=== PATIENT | male | born 1985 | race Caucasian/White ===

== ENCOUNTER 2024-03-05 18:23 | Emergency (ER) | payer BC, SELFPAY ==
[2024-03-05] VITALS (10 sets, daily range): BP systolic 94–120; BP diastolic 62–76; PULSE 54–64; RESP 16–18; TEMP 36.2; O2SAT 96–100; BMI 27.3
--- NOTE | 2024-03-05 18:47 | CT_ITS ---
Patient: KEATON COOPER Facility:?[facility] R[facility] Patient ID:?[id number] Site Patient ID:?[id number] Site :?[id number] Study:?CT-Abdomen/Pelvis W/O-03/05/2024 7:10:35 PM Ordering Physician:MARCEL Final Report: INDICATION: Abdomen pain, vomiting. History of hernia surgery. TECHNIQUE: CT of the abdomen and pelvis without IV contrast. Coronal and sagittal reconstructions. COMPARISON: None. FINDINGS: The unenhanced liver, gallbladder, spleen, pancreas, and adrenal glands are normal in appearance. No biliary dilation. No hydronephrosis or ureteral dilation. No obstructing urinary calculi identified. No bladder wall thickening. Nonenlarged prostate gland. No small bowel dilation. There is submucosal fat deposition in a few distal small bowel loops including the terminal ileum. This is nonspecific but can be seen in the setting of chronic inflammation. Mild to moderate amount of stool throughout the colon. Rectal wall thickening. Negative appendix. No intraperitoneal free air or fluid. No lymphadenopathy. Status post ventral hernia and bilateral inguinal hernia repairs. The lung bases are clear. Degenerative disc disease at L4-L5. IMPRESSION: 1. There is submucosal fat deposition in a few distal small bowel loops including the terminal ileum which can be seen in the setting of chronic inflammation. No evidence of bowel obstruction or active bowel inflammation within limitations of noncontrast exam. 2. Rectal wall thickening may be inflammatory, however correlation with colonoscopy is recommended. 3. No other acute findings in the abdomen or pelvis on this noncontrast exam. Please note that all CT scans at this facility use dose modulation, iterative reconstruction, and/or weight-based dosing when appropriate to reduce radiation dose to as low as reasonably achievable. Dictated by Felicia Hawkins MD @ 03/05/2024 7:47:09 PM Signed by:?Felicia Hawkins MD @03/05/2024 7:47:09 PM (Electronic Signature)
--- NOTE | 2024-03-05 18:49 | ED.GENADULT ---
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 He but 2:00 a.m. started feeling dizzy and upset in his stomach. He reports to that he was unable to take water for a couple of days, but did drink some coconut water today. He has had no recent fever, no chest pain, he has been vomiting pretty much steadily since he arrived in the ER. He describes some vague abdominal pain. He reports he has been healthy. He is not on any home medications. He denies trauma or injury. He has had no dysuria frequency hematuria diarrhea. Related Data Home Medications Medication Instructions Recorded Confirmed No Known Home Medications 03/05/24 03/05/24 Allergies Allergy/AdvReac Type Severity Reaction Status Date / Time No Known Drug Allergies Allergy Verified 03/05/24 18:38 Review of Systems Status of ROS: Reports: 6 or more systems reviewed and unremarkable except as noted in History and below PFSH PFS Social History Smoking Status: Never smoker Do you use any of these nicotine containing products: None Second hand tobacco smoke exposure: No How often do you have a drink containing alcohol: never AUDIT-C Alcohol total score: 0 Non-prescribed substance use: denies use Exam Narrative: Exam Narrative: Objective: Patient's vital signs are largely within normal limits, he does not have a temperature He is vomiting repetitively, he talks in a very breathy in quiet manner when he does speak. He denies any chest pain or breathing problem. He has not had any fever chills HEENT is unremarkable , although he is mildly pale Pulses regular Lungs are clear Abdomen is benign soft to palpation. The patient would not lie back so I examine him sitting up and could not feel any masses or peritonitis He denies symptoms Extremities are no edema neurologic nonfocal good peripheral perfusion noted, he is slightly pale his skin is cool. Const: Vital Signs, click to edit/add: Vital Signs - 24 hr 03/05/24 18:31 03/05/24 18:47 03/05/24 19:16 Temperature 97.1 F L Pulse Rate 54 L Pulse Rate [Pulse Oximeter] 64 Respiratory Rate 18 16 Blood Pressure 105/66 Blood Pressure [Le ft Upper Arm] 114/73 Pulse Oximetry 97 97 96 Oxygen Delivery Me thod Room Air Room Air 03/05/24 19:17 03/05/24 19:30 03/05/24 19:32 Temperature Pulse Rate 54 L 57 L 57 L Pulse Rate [Pulse Oximeter] Respiratory Rate Blood Pressure 94/62 Blood Pressure [Le ft Upper Arm] Pulse Oximetry 96 97 98 Oxygen Delivery Me thod 03/05/24 19:33 03/05/24 19:45 03/05/24 20:04 Temperature Pulse Rate 56 L 57 L 63 Pulse Rate [Pulse Oximeter] Respiratory Rate 18 Blood Pressure 120/76 Blood Pressure [Le ft Upper Arm] Pulse Oximetry 98 98 100 Oxygen Delivery Me thod Room Air 03/05/24 20:05 Temperature Pulse Rate 63 Pulse Rate [Pulse Oximeter] Respiratory Rate Blood Pressure Blood Pressure [Le ft Upper Arm] Pulse Oximetry 99 Oxygen Delivery Me thod Course Vital Signs Vital signs: Initial Vital Signs Temperature 97.1 F L 03/05/24 18:31 Temperature Source Temporal Artery Scan 03/05/24 18:31 Pulse Rate 64 03/05/24 18:31 Respiratory Rate 18 03/05/24 18:31 Blood Pressure 114/73 03/05/24 18:31 Blood Pressure Mean 86 03/05/24 18:31 Blood Pressure Position Sitting 03/05/24 18:31 Pulse Oximetry 97 03/05/24 18:31 Oxygen Delivery Method Room Air 03/05/24 18:31 Vital Signs Temperature 97.1 F L 03/05/24 18:31 Pulse Rate 64 03/05/24 18:31 Respiratory Rate 18 03/05/24 18:31 Blood Pressure 114/73 03/05/24 18:31 Pulse Oximetry 97 03/05/24 18:31 Oxygen Delivery Method Room Air 03/05/24 18:31 Temperature 97.1 F L 03/05/24 18:31 Pulse Rate 63 03/05/24 20:05 Respiratory Rate 18 03/05/24 20:04 Blood Pressure 120/76 03/05/24 20:04 Pulse Oximetry 99 03/05/24 20:05 Oxygen Delivery Method Room Air 03/05/24 20:04 Medications Administered Medications: Discontinued Medications Generic Name Dose Route Start Last Admin Trade Name Jennifer PRN Reason Stop Dose Admin Sodium Chloride 1,000 mls @ 6,000 mls/hr 03/05/24 19:00 03/05/24 19:50 0.9 % Sodium Chloride 1000 Ml IV 03/05/24 19:09 Infused .Q10M RAYMOND Infusion Sodium Chloride 1,000 mls @ 6,000 mls/hr 03/05/24 19:45 03/05/24 20:04 0.9 % Sodium Chloride 1000 Ml IV 03/05/24 19:54 Infused .Q10M RAYMOND Infusion Lorazepam 1 mg 03/05/24 18:47 03/05/24 18:56 Lorazepam 2 Mg/Ml Inj IVP 03/05/24 18:48 1 mg ONCE ONE Administration Ondansetron HCl 4 mg 03/05/24 18:47 03/05/24 18:55 Ondansetron 2 Mg/Ml Inj IVP 03/05/24 18:48 4 mg ONCE ONE Administration Medical Decision Making [facility] Narrative Medical decision making narrative: 38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 He certainly could just have [place] dehydration as well. Patient will get a L of fluid IV Ativan 1 mg and Zofran 4 mg IV. Will check electrolytes, liver function tests, urinalysis, urine drug screen. Disposition pending findings above. Probably give a 2 L of fluid as well. Would also completeness get a troponin and a EKG. Will put him on oximeter. Due to volume in the ER the patient was seen in the chahal bed. Addendum 7:22 p.m.: The patient has return of his collar he has good skin color he feels a lot better. He got a L of fluid Zofran Ativan. I think at this point will given a 2 L of fluid await his CT scan of his abdomen. And additional labs. If these are all reassuring I think he can be discharged to home with adequate fluid, stay out of the heat for the next couple of days and light activity. Follow up with regular doctor in the next 3-4 days. The patient's EKG by my read shows sinus bradycardia normal EKG otherwise in rate of 58 beats per minute. Addendum 7:51 p.m. the patient's EKG by my read shows sinus bradycardia with no ST T wave changes. His troponin is 0. His electrolytes and labs look reassuring, his glucose is elevated 137 which is likely stress related from dehydration and exertion. Would recommend he have this tested again fasting. His CT of the abdomen without contrast showed few submucosal fat deposition is a within the terminal ileum and small-bowel loops of could be chronic inflammation, some rectal wall thickening may be inflammatory as well. No other acute findings. They do recommend colonoscopy to recheck this. The patient feels markedly better after IV fluid 0 who get a 2 L. I would rather follow up with his primary care doctor I think we can allow to go home today. Recommend light activity for the next couple of days and then recheck with regular doctor, consider colonoscopy in follow-up Lab Data Labs: Lab Results 03/05/24 03/05/24 Range/Units 18:50 19:55 WBC 11.13 H (4.50-11.00) K/uL RBC 5.28 (4.30-5.90) m/uL Hgb 13.7 (13.5-17.5) gm/dL Hct 42.2 (37.0-53.0) % MCV 80 (80-100) fL MCH 26 (26-34) pg MCHC 33 (32-36) gm/dL RDW Coeff of Manish 12.5 (11.5-15.5) % Plt Count 366 (140-440) K/uL Neut % (Auto) 59.1 (42.0-72.0) % Lymph % (Auto) 29.8 (20-44) % [place] % (Auto) 9.1 (0.0-11.0) % Eos % (Auto) 1.5 (0.0-7.0) % Baso % (Auto) 0.3 (0.0-3.0) % Neut # (Auto) 6.60 (1.7-7.0) K/uL Lymph # (Auto) 3.30 H (0.90-2.90) K/uL [place] # (Auto) 1.00 H (0.00-0.90) K/UL Eos # (Auto) 0.20 (0.00-0.50) K/uL Baso # (Auto) 0.00 (0.00-0.30) K/uL Abs Immat Gran (auto) 0.00 (0.00-0.30) K/uL Imm/Tot Granulo (auto) 0.2 % Sodium 141 (135-149) mmol/L Potassium 3.6 (3.6-5.1) mmol/L Chloride 106 (96-114) mmol/L Carbon Dioxide 27 (20-32) mmol/L Anion Gap 8 (7-15) mEq/L BUN 24 (5-24) mg/dL Creatinine 0.9 (0.5-1.5) mg/dL Estimated Creat Clear 112.65 Estimated GFR 111 ml/min Glucose 137 H (60-115) mg/dL Calcium 8.9 (8.4-10.6) mg/dL Total Bilirubin 0.4 (0.1-1.5) mg/dL Direct Bilirubin 0.0 (0.0-0.5) mg/dL AST 32 (12-35) U/L ALT 25 (4-50) U/L Alkaline Phosphatase 80 (40-150) U/L C-Reactive Protein < 0.5 L (0.5-1.0) mg/dL Total Protein 7.5 (6.0-8.3) g/dL Albumin 4.7 (3.3-5.0) g/dL Amylase 72 (18-89) U/L Urine Color Taylor A (Yellow) Urine Appearance Clear (Clear) Urine pH 5.5 (5.0-8.5) Ur Specific [place] >= 1.030 (1.000-1.030) Urine Protein Negative (Negative) Urine Glucose (UA) Negative (Negative) Urine Ketones Negative (Negative) Urine Blood Negative (Negative) Urine Nitrite Negative (Negative) Urine Bilirubin Negative (Negative) Urine Urobilinogen 0.2 (0.2-1.0) Ur Leukocyte Esterase Negative (Negative) Urine RBC 0-2 (0-2) Urine WBC 0-2 (0-5) Ur Squamous Epith Cells None (None-Few) Urine Bacteria None (None) Urine Opiates Screen Negative (Negative) Ur Oxycodone Screen Negative (Negative) Urine Methadone Screen Negative (Negative) Ur Barbiturates Screen Negative (Negative) U Tricyclic Antidepress Negative (Negative) Ur Phencyclidine Scrn Negative (Negative) Ur Amphetamines Screen Negative (Negative) U Methamphetamines Scrn Negative (Negative) U Benzodiazepines Scrn Negative (Negative) Urine Cocaine Screen Negative (Negative) U Marijuana (THC) Screen Negative (Negative) Ur Drug Screen Comment See Note POC Troponin I 0.00 L (0.01-0.04) ng/ml Discharge Plan Discharge Clinical Impression: Vomiting, Dehydration Patient Disposition: Home w/ Parent or Adult Condition: Improved Additional Instructions: Light activity for the next couple of days, adequate fluid intake including up to 6 full glasses of water a day, avoid the heat for the next couple of days, recheck with her regular doctor in the next 3-4 days. Return to ED sooner problems concerns worsening. Radiologist recommends colonoscopy foot to follow-up some inflammatory changes noted on year small bowel and rectal area. This is possibly benign and may be related to dehydration or simply a normal variant, but I would recommend talk about this with your doctor consider colonoscopy. Activity Level: Light activity Discharge Diet: Regular Prescriptions: No Action No Known Home Medications Follow Up/Referrals: Jose G Cantu MD [Primary Care Provider] - Stand Alone Forms: [employer] Info Instructions
[2024-03-05] MEDS: ONDANSETRON 2 MG/ML inj 4 MG IVP (18:55)
[2024-03-05] MEDS: 0.9 % SODIUM CHLORIDE 1000 ml 1,000 ML 6000 ML IV ×2 (18:56→19:50)
[2024-03-05] MEDS: LORazepam 2 MG/ML inj 1 MG IVP (18:56)
[2024-03-05 19:00] LABS: Basophils Percent Auto 0.3 % (0.0-3.0); Eosinophils Percent Auto 1.5 % (0.0-7.0); Hematocrit 42.2 % (37.0-53.0); Hemoglobin* 13.7 gm/dL (13.5-17.5); Immature Granulocytes Pct Auto 0.2 %; Lymphocytes Percent Auto 29.8 % (20-44); Mean Corpuscular HGB Conc 33 gm/dL (32-36); Mean Corpuscular Hemoglobin 26 pg (26-34); Mean Corpuscular Volume 80 fL (80-100); Monocytes Percent Auto 9.1 % (0.0-11.0); Neutrophils Percent Auto 59.1 % (42.0-72.0); Platelet Count* 366 K/uL (140-440); RDW Coefficient of Variation % 12.5 % (11.5-15.5); Red Blood Count 5.28 m/uL (4.30-5.90); White Blood Count* 11.13 K/uL (4.50-11.00)
[2024-03-05 19:02] LABS: Slide Review Reflex No
--- OUTSIDE RECORDS SUMMARY | 2024-03-05 19:02 | XMS_ITS | Referral Summary ---
Author Name Unknown Organization [place] Address [address] [place] [address] Care Team Providers Care Consignee Name Role Phone Jose G Cantu MD Primary Care Provider [phone] Steffen Bo MD Unavailable Allergies No known active allergies Medications No known medications Social History Tobacco Use Types Packs/Day Years Used Date Smoking Tobacco: Former Cigarettes Q uit: 10/20/2022 Tobacco Cessation:Counseling Given: Yes Alcohol Use Standard Drinks/Week Comments Yes 0 (1 standard drink = 0.6 oz pur e alcohol) 0-1 per week Adolescent Education Answer Date Record ed Getting School Help Needed Not on file 07/17 Sex and Gender Information Value Date Recorded Sex Assigned at Not on file Gender Identity Not on file Sexual Orientation Not on file Last Filed Vital Signs Vital Sign Reading Time Taken Comments Blood Pressure 100/60 07/10/2023 11:27 AM CDT Pulse 57 07/10/2023 11:27 AM CDT Temperature 36.7 ??C (98.1 ??F) 10/06/2011 12:[address] Respiratory Rate 16 10/06/2011 12:46 PM LEAD QA ANALYST Oxygen Saturation 98% 10/06/2011 12:46 PM LEAD QA ANALYST Inhaled Oxygen Concentration - - Weight 83.9 kg (185 lb) 07/10/2023 11:27 AM CDT Pt reported Height 177.8 cm (5' 10) 07/10/2023 11:27 AM CDT Pt reported Body Mass Index 26.54 07/10/2023 11:27 AM CDT Plan of Treatment Not on file Care Teams Consignee Relationship Specialty Start Date End Date Jose G Cantu MD [address] [place] [address] PCP - General 06/16/23 Steffen Bo MD [id number] [place] [id number] Assigned Surgical Provider 07/26/23
--- OUTSIDE RECORDS SUMMARY | 2024-03-05 19:02 | XMS_ITS | Clinical Summary ---
Author Name Unknown Organization [place] Address [address] [facility] [place] [address] Care Team Providers Care Utilization Supervisor Name Role Phone Jose G Cantu MD Primary Care Provider [phone] Steffen Bo MD Unavailable [phone] Allergies No known active allergies Medications No [...] ST Respiratory Rate 16 10/06/2011 12:46 PM SUBSTATION DESIGNER Oxygen Saturation 98% 10/06/2011 12:46 PM SUBSTATION DESIGNER Inhaled Oxygen Concentration - - Weight 83.9 kg (185 lb) 07/10/2023 11:27 AM CDT Pt reported Height 177.8 cm (5' 10) 07/10/2023 11:27 AM CDT Pt reported Body Mass Index 26.54 07/10/2023 11:27 AM CDT Plan of Treatment Health Maintenance Due Date Last Done Comments ADVANCE CARE PLANNING 1983 ANNUAL REVIEW OF HM ORDERS 1983 GLUCOSE 1983 HIV SCREENING 1998 HEPATITIS C SCREENING 2001 IPV IMMUNIZATION (3 of 3 - 4-dose series) 08/08/2010 02/06/2010, 06/30/1985 COVID-19 Vaccine ( season) 2023 08/01/2022, 10/04/2021, 02/01/2021, Additional history exists PHQ-2 (once per calendar year) 2023 LIPID 2023 YEARLY PREVENTIVE VISIT 06/16/2024 06/16/20 23, 04/30/2022, 11/21/2020 INFLUENZA VACCINE (Season Ended) 2024 08/01/2022, 07/31/2020, 12/08/2019, Additional history exists DTAP/TDAP/TD IMMUNIZATION (4 - Td or Tdap) 01/05/2030 01/06/2020, 02/06/2010, 06/30/1985 MENINGITIS IMMUNIZATION Aged Out 02/06/2010 No l onger eligible based on patient's age to complete this topic Pneumococcal Vaccine: Pediatrics (0 to 5 Years) and At-Risk Patients (6 to 64 Years) Aged Out 02/14/2011 No longer eligible based on patient's age to complete this topic HEPATITIS B IMMUNIZATION Completed 011, 04/12/2010, 02/08/2010 HPV IMMUNIZATION Aged Out No longer e ligible based on patient's age to complete this topic RSV MONOCLONAL ANTIBODY Aged Out No l onger eligible based on patient's age to complete this topic Care Teams Utilization Supervisor Relationship Specialty Start Date End Date Jose G Cantu MD [address] [place] [address] PCP - General 06/16/23 Steffen Bo MD [id number] [place] [id number] Assigned Surgical Provider 07/26/23
--- OUTSIDE RECORDS SUMMARY | 2024-03-05 19:03 | XMS_ITS | Continuity of Care Document ---
Author Name [facility] Organization [facility] Care Team Providers Care Scrape Gatherer Name Role Phone [facility] Unavailable Unavailable Problems Combined list of problems from Department of Defense and Veterans Affairs facilities. It does not include entries that were removed or entered in error. 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 medical exam periodic health assessment Active Condition DoD joint pain in the right hip Active Condition DoD lower back pain Active Condition DoD chronic pain Active Condition DoD conjunctivitis acute Inactive Condition DoD back strain lumbar Inactive Condition Do D midback pain Active Condition DoD visit for: screening exam viral disease Inactive Condition DoD [employer] medical exam Active Condition [facility] visit for: screening exam infectious diseases viral Inactive Condition DoD visit for: ears / hearing exam Active Condition DoD visit for: screening exam hematological disorders Inactive Condition DoD visit for: screening mental / developmental disorders Inactive Condition DoD Need For Vaccination MMR Inactive Condition DoD Need For Vaccination Hepatitis B Inactive Condition DoD foot pain (soft tissue) Active Condition DoD upper respiratory infection acute Inactive Condition DoD headache Inactive Condition DoD coughing up sputum reddish brown Active Condition DoD otitis media Active Condition DoD rhinitis Active Condition DoD [employer] Fitting Monofocal Except For Aphakia Active Condition DoD visit for: screening exam Inactive Condition DoD visit for: occupational health / fitness exam Active Condition DoD Need For Vaccination Against Influenza Inactive Condition DoD cellulitis Inactive Condition DoD visit for: administrative purpose Inactive Condition DoD Need For Vaccination Hepatitis A Inactive Condition DoD refractive error - myopia Active Condition DoD visit for: services physical Inactive Condition DoD visit for: screening exam pulmonary tuberculosis Inactive Condition DoD visit for: services physical accession Active Condition DoD visit: ears/hearing exam for hearing conservation, treatment Active Condition DoD Allergies, Adverse Reactions, Alerts Combined list of allergies from Department of Defense and Veterans Affairs facilities. It does not include entries that were removed or entered in error. Substance Category Reaction Severity Reaction type Status Date Reported Comments Source No Known Allergies Drug allergy (disorder) active 04/12/2010 Tj Bashir [place] Immunizations Combined list of available immunizations from the Department of Defense and Veterans Affairs facilities. Immunization Series Date Given Administered By Site Reaction Lot Number CVX Code Drug Clerical Stock Inspector Status Comments Source COVID-19 (PFIZER), MRNA, LNP-S, PF, 30 MCG/0.3 ML DOSE 2 2020 208 complet ed PFR; [id number]; 1 [facility] COVID-19 (PFIZER), MRNA, LNP-S, PF, 30 MCG/0.3 ML DOSE 1 2020 208 complet ed PFR; [id number]; 1 [facility] influenza, seasonal, injectable-pf 2014 [id number] CSL Behring complet ed influenza , seasonal, injectabl e-pf 08/17/15 Given Ambulat ory Pharmac y influenza, seasonal, injectable-pf 2014 [id number] 140 CSL Behring complet ed influenza , seasonal, injectabl e-pf 08/17/15 Given Ambulat ory Pharmac y Influenza, seasonal, injectable, preservative free 1 2014 [id number] 140 CSL [employer]eda [employer] (CS) complet ed Influenza , seasonal, injectabl e, preservat avtar free DoD influenza, seasonal, injectable-pf 2013 [id number] 140 Novartis Pharmaceutica ls complet ed influenza , seasonal, injectabl e-pf 07/28/14 Given Ambulat ory Pharmac y influenza, seasonal, injectable-pf 2013 [id number] 140 Novartis Pharmaceutica ls complet ed influenza , seasonal, injectabl e-pf 07/28/14 Given Ambulat ory Pharmac y Influenza, seasonal, injectable, preservative free 1 2013 [id number] 140 Novartis Pharmaceutica l Chary. (NOV) complet ed Influenza , seasonal, injectabl e, preservat avtar free [facility] influenza, live, intranasal,qu adrivalent 2012 [id number] 149 [employer] comple t ed influenza , live, intranasa l,quadriv alent 07/26/13 Given Ambulat ory Pharmac y tuberculin purified protein derivative 2012 [id number] 96 sanofi pasteur complet ed tuberculi n purified protein derivativ e 07/26/13 Given Ambulat ory Pharmac y influenza, live, intranasal,qu adrivalent 2012 [id number] 149 [employer] comple t ed influenza , live, intranasa l,quadriv alent 07/26/13 Given Ambulat ory Pharmac y influenza, live, intranasal, quadrivalent 1 2012 [id number] 149 [employer]. (MED) complet ed influenza , live, intranasa l, quadrival ent DoD anthrax vaccine 2012 [id number] Emergent [employer] complet ed anthrax vaccine 04/01/13 Given Ambulat ory Pharmac y anthrax vaccine 2012 [id number] 24 [employer] complet ed anthrax vaccine 04/01/13 Given Ambulat ory Pharmac y anthrax vaccine 3 2012 [id number] 24 Emergent [employer] Weems (MIP) complet ed anthrax vaccine DoD typhoid Vi capsular polysaccharid e vac 2012 [id number] 101 sanofi pasteur complet ed typhoid Vi capsular polysacch aride vac 11/01/12 Given Ambulat ory Pharmac y anthrax vaccine 2012 [id number] 24 [employer] complet ed anthrax vaccine 11/01/12 Given Ambulat ory Pharmac y typhoid Vi capsular polysaccharid e vac 2012 [id number] 101 sanofi pasteur complet ed typhoid Vi capsular polysacch aride vac 11/01/12 Given Ambulat ory Pharmac y anthrax vaccine 2012 [id number] 24 [employer] complet ed anthrax vaccine 11/01/12 Given Ambulat ory Pharmac y anthrax vaccine 2 2012 [id number] [employer] (MIP) complet ed anthrax vaccine DoD typhoid Vi capsular polysaccharid e vaccine 1 2012 [id number] 101 Sanofi Pasteur (PMC) complet ed typhoid Vi capsular polysacch aride vaccine DoD anthrax vaccine 2011 [id number] [employer] complet ed anthrax vaccine 09/14/12 Given Ambulat ory Pharmac y tuberculin purified protein derivative 2011 [id number] 96 sanofi pasteur complet ed tuberculi n purified protein derivativ e 09/14/12 Given Ambulat ory Pharmac y anthrax vaccine 1 2011 [id number] 24 [employer] (MIP) complet ed anthrax vaccine DoD vaccinia (smallpox) vaccine 1 2011 UNK 75 Unknown (UNK) Not Given vaccinia (smallpox ) vaccine DoD influenza virus vaccine, whole virus 2011 Left Arm [id number] [id number] 16 CSL Behring complet ed influenza virus vaccine, whole virus 08/13/12 Given Ambulat ory Pharmac y influenza, seasonal, injectable 2011 [id number] 1A 141 CSL Behring complet ed influenza , seasonal, injectabl e 08/13/12 Given Ambulat ory Pharmac y influenza, seasonal, injectable 2011 [id number] 1A 141 CSL Behring complet ed influenza , seasonal, injectabl e 08/13/12 Given Ambulat ory Pharmac y influenza virus vaccine, whole virus 1 2011 TRISH GUERRERO [id number] 1A 16 CS [employer]otherap[employer] Inc. ([facility]) complet ed influenza virus vaccine, whole virus DoD Influenza, seasonal, injectable 1 2011 [id number] 1A 141 CS [employer]eda [employer] Inc. ([facility]) complet ed Influenza , seasonal, injectabl e DoD influenza, seasonal, injectable 2010 [id number] 1A 141 Unknown complet ed influenza , seasonal, injectabl e 07/10/11 Given Ambulat ory Pharmac y influenza, seasonal, injectable 2010 [id number] 1A 141 Unknown complet ed influenza , seasonal, injectabl e 07/10/11 Given Ambulat ory Pharmac y Influenza, seasonal, injectable 1 2010 [id number] 1A 141 Unknown (UNK) complet ed Influenza , seasonal, injectabl e DoD measles/mumps /rubella virus vaccine 2010 [id number] Merck & Company Inc complet ed measles/m umps/rube lla virus vaccine 05/17/11 Given Ambulat ory Pharmac y hepatitis A-hepatitis B vaccine 2010 [id number] 1BA 104 GlaxoSmithKli ne complet ed hepatitis A-hepatit is B vaccine 05/17/11 Given Ambulat ory Pharmac y hepatitis A-hepatitis B vaccine 2010 [id number] 1BA 104 GlaxoSmithKli ne complet ed hepatitis A-hepatit is B vaccine 05/17/11 Given Ambulat ory Pharmac y hepatitis A-hepatitis B vaccine 2010 [id number] 1BA 104 GlaxoSmithKli ne complet ed hepatitis A-hepatit is B vaccine 05/17/11 Given Ambulat ory Pharmac y measles/mumps /rubella virus vaccine 2010 [id number] 03 Merck & Company Inc complet ed measles/m umps/rube lla virus vaccine 05/17/11 Given Ambulat ory Pharmac y measles, mumps and rubella virus vaccine 1 2010 [id number] 03 Merck (MSD) complet ed measles, mumps and rubella virus vaccine DoD hepatitis A and hepatitis B vaccine 3 2010 [id number] 1BA 104 [place] (SKB) complet ed hepatitis A and hepatitis B vaccine DoD pneumococcal polysaccharid e, 23 valent 2010 [id number] 33 [employer] complet ed pneumococ david polysacch aride, 23 valent 02/14/11 Given Ambulat ory Pharmac y pneumococcal polysaccharid e, 23 valent 2010 [id number] 33 [employer] complet ed pneumococ david polysacch aride, 23 valent 02/14/11 Given Ambulat ory Pharmac y pneumococcal polysaccharid e vaccine, 23 valent 1 2010 [id number] 33 [facility] complet ed pneumococ david polysacch aride vaccine, 23 valent DoD influenza virus vaccine,split 2009 [id number] 15 Unknown complet ed influenza virus vaccine,s plit 09/07/10 Given Ambulat ory Pharmac y influenza virus vaccine,split 2009 [id number] 15 Unknown complet ed influenza virus vaccine,s plit 09/07/10 Given Ambulat ory Pharmac y influenza virus vaccine, split virus (incl. purified surface antigen)-reti red CODE 1 2009 [id number] 15 Unknown (UNK) comple t ed influenza virus vaccine, split virus (incl. purified surface antigen)- retired CODE DoD hepatitis A-hepatitis B vaccine 2009 [id number] 4BA 104 GlaxoSmithKli ne complet ed hepatitis A-hepatit is B vaccine 04/12/10 Given Ambulat ory Pharmac y hepatitis A-hepatitis B vaccine 2009 [id number] 4BA 104 GlaxoSmithKli ne complet ed hepatitis A-hepatit is B vaccine 04/12/10 Given Ambulat ory Pharmac y hepatitis A-hepatitis B vaccine 2009 [id number] 4BA 104 GlaxoSmithKli ne complet ed hepatitis A-hepatit is B vaccine 04/12/10 Given Ambulat ory Pharmac y hepatitis A and hepatitis B vaccine 2 2009 [id number] 4BA 104 Smithine (SKB) complet ed hepatitis A and hepatitis B vaccine DoD varicella virus vaccine 1 2009 UNK 21 Unknown (UNK) Not Given varicella virus vaccine DoD Novel influenza-H1N 1-09, injectable 2009 [id number] 1 127 Novartis Pharmaceutica ls complet ed Novel influenza -[id number], injectabl e 02/08/10 Given Ambulat ory Pharmac y measles/mumps /rubella virus vaccine 2009 [id number] 03 Merck & Company Inc complet ed measles/m umps/rube lla virus vaccine 02/08/10 Given Ambulat ory Pharmac y hepatitis A-hepatitis B vaccine 2009 [id number] 7BA 104 GlaxoSmithKli ne complet ed hepatitis A-hepatit is B vaccine 02/08/10 Given Ambulat ory Pharmac y hepatitis A-hepatitis B vaccine 2009 [id number] 7BA 104 GlaxoSmithKli ne complet ed hepatitis A-hepatit is B vaccine 02/08/10 Given Ambulat ory Pharmac y hepatitis A-hepatitis B vaccine 2009 AHABB16 7BA 104 GlaxoSmithKli ne complet ed hepatitis A-hepatit is B vaccine 02/08/10 Given Ambulat ory Pharmac y Novel influenza-H1N 1-09, injectable 2009 [id number] 1 127 Novartis Pharmaceutica ls complet ed Novel influenza -[id number], injectabl e 02/08/10 Given Ambulat ory Pharmac y measles/mumps /rubella virus vaccine 2009 [id number] 03 Merck & Company Inc complet ed measles/m umps/rube lla virus vaccine 02/08/10 Given Ambulat ory Pharmac y measles, mumps and rubella virus vaccine 1 2009 [id number] 03 Merck (MSD) complet ed measles, mumps and rubella virus vaccine DoD hepatitis A and hepatitis B vaccine 1 2009 AHABB16 7BA 104 SmithKline (SKB) complet ed hepatitis A and hepatitis B vaccine DoD Novel influenza-H1N 1-09, injectable 1 2009 [id number] 1 127 Novartis Easy Solutions. (NOV) complet ed Novel influenza -M2I3-58, injectabl e DoD tetanus, diphtheria, acellular pertu is 2009 [id number] 115 sanofi pasteur complet ed tetanus, diphtheri a, acellular pertussis 02/06/10 Given Ambulat ory Pharmac y meningococcal A,C,Y,W-135 (MCV4P) 2009 [id number] 114 GlaxoSmithKli ne complet ed meningoco ccal A,C,Y,W-1 35 (MCV4P) 02/06/10 Given Ambulat ory Pharmac y tetanus, diphtheria, acellular pertu is 2009 [id number] 115 sanofi pasteur complet ed tetanus, diphtheri a, acellular pertussis 02/06/10 Given Ambulat ory Pharmac y meningococcal A,C,Y,W-135 (MCV4P) 2009 [id number] 114 GlaxoSmithKli ne complet ed meningoco ccal A,C,Y,W-1 35 (MCV4P) 02/06/10 Given Ambulat ory Pharmac y poliovirus vaccine, inactivated 2009 [id number] 10 sanofi pasteur complet ed polioviru s vaccine, inactivat ed 02/06/10 Given Ambulat ory Pharmac y poliovirus vaccine, inactivated 2009 [id number] 10 sanofi pasteur complet ed polioviru s vaccine, inactivat ed 02/06/10 Given Ambulat ory Pharmac y tuberculin purified protein derivative 2009 [id number] 96 GlaxoSmithKli ne complet ed tuberculi n purified protein derivativ e 02/06/10 Given Ambulat ory Pharmac y poliovirus vaccine, inactivated 1 2009 [id number] 10 Sanofi Pasteur (PMC) complet ed polioviru s vaccine, inactivat ed DoD meningococcal polysaccharid e (groups A, C, Y and W-135) diphtheria toxoid conjugate vaccine (MCV4P) 1 2009 [id number] 114 [facility] (SKB) complet ed meningoco ccal polysacch aride (groups A, C, Y and W-135) diphtheri a toxoid conjugate vaccine (MCV4P) DoD tetanus toxoid, reduced diphtheria toxoid, and acellular pertu is vaccine, adsorbed 1 2009 [id number] 115 Sanofi Pasteur (PMC) complet ed tetanus toxoid, reduced diphtheri a toxoid, and acellular pertussis vaccine, adsorbed DoD influenza virus vaccine, live 2009 [id number] 111 sanofi pasteur complet ed influenza virus vaccine, live 02/05/10 Given Ambulat ory Pharmac y influenza virus vaccine, live 2009 [id number] 111 sanofi pasteur complet ed influenza virus vaccine, live 02/05/10 Given Ambulat ory Pharmac y influenza virus vaccine, live, attenuated, for intranasal use 1 2009 [id number] 111 Sanofi Pasteur ([facility]) complet ed influenza virus vaccine, live, attenuate d, for intranasa l use DoD Encounters Combined list of: 1) Encounters from Department of Veterans Affairs facilities going back up to thelast 18 months. 2) Encounters from the Department of Defense facilities going back up to 280 months. Location Location Details Encounter Type Encounter Number Reason For Visit Attending Provider ADM Date DC Date Status Disposition Source [place] [place] [facility] [place] OUTPATIENT [id number] LUCIA RASHEED 02/07 Released [place] Lim[place] [id number] hearing test THANH LEBLANC. 02/07 [place] [place] [id number] IMM KEATON ALCALA 02/08 [place] OUTPATIENT [id number] TWIN KELBY CHILDERS L. 04/12 Released w/o Limitations Leandro ACHTj Virgie , [place]([facility]) Leandro A[facility]Tj, [place]([facility]) OUTPATIENT [id number] O[facility] RECORD SCREENI JACKSON BRUCE 05/04 Released w/o Limitations Leandro ACHTj , [place]([facility] Leandro [facility]Tj, [place]([facility]) OUTPATIENT [id number] inflama tion of LUIS F Valdez 06/14 Released w/o Limitations Leandro ACHTj , [place]([facility]) Leandro [facility]Tj, [place]([facility]) OUTPATIENT [id number] [facility] BETHANY CAMPOS 08/22 Released w/o Limitations Leandro ACHTj , [place]([facility]) Leandro ACHTj, [place]([facility]) OUTPATIENT [id number] flu shot MOUNIKA BREAUX. 09/12 Released w/o Limitations Leandro ACHTj , [place]([facility]) Leandro ACHTj, [place]([facility]) OUTPATIENT [id number] [facility] MOUNIKA BREAUX. 09/18 Released w/o Limitations Leandro ACHTj , [place]([facility]) Leandro ACHTj, [place]([facility]) OUTPATIENT [id number] [facility] part II KELBY ALLEN P 09/20 Released w/o Limitations Leandro ACHTj , [place]([facility]) Tj Bashir, [place]([facility]) OUTPATIENT [id number] records review BLAKE CORMIER 09/25 Released w/o Limitations Leandro ACHTj , [place]([facility]) Tj Bashir, [place](Optome try) OUTPATIENT [id number] DARNELL Holder 01/16 [place]) OUTPATIENT [id number] cold symptom s LUIS F MEDRANO Leslie 02/07 Released with Work/Duty Limitations [place] [place] ) OUTPATIENT [id number] foot pain MATTHEWJAIMEMarco A Ryder 03/16 Released w/o Limitations [facility] [place] [place]) OUTPATIENT [id number] [facility] DEJA CHRISTIANO O 05/20 Released w/o Limitations [place] [place]j [place] Medical Inprocess ing) OUTPATIENT [id number] DENG Velez 05/31 [facility]ased w/o Limitations [facility] [place] Medical Inproce ssing) [facility] [place] OUTPATIENT [id number] HAKEEM Garcia 10/30 Released w/o Limitations [facility] [place] [facility] [place]Optome try [facility] OUTPATIENT [id number] [employer] 20/20 w/o rx CARLOS MURPHY 11/21 Released w/o Limitations [facility] [place]Opto metry [facility]) [facility] [place] Primary Care) OUTPATIENT [id number] Notes Entered by: EMEKA CONCEPCION 13 Aug 2012 0756 ------- ------- ------- ------- -- walk in [facility] TRISH GUERRERO 08/13 Released w/o Limitations [facility] DEANDRE [place]([facility] Primary Care) [facility] DE[facility]RE Paula([facility] Primary Care) OUTPATIENT [id number] Notes Entered by: RODRIGO DOBSON 24 Aug 2013 0953 ------- ------- ------- ------- -- [facility] JENSEN BLACKBURN 08/24 Released w/o Limitations [facility] [place] Primary Care) [facility] [place] Dr) OUTPATIENT [id number] x-ray JENSEN MALDONADO 09/07 Released w/o Limitations [facility] [place] Dr) [facility] [place] [id number] Notes Entered by: VIK ACOSTA 08 Oct 2013 1003 ------- ------- ------- ------- -- [facility] VIK ACOSTA 10/08 Released w/o Limitations [facility] [place]ion) [facility] [place]) OUTPATIENT [id number] midback pain BETSY GAY W 11/09 Released w/o Limitations [facility] DEANDRE [place](Chir opracti c Clinic) [facility] [place]) OUTPATIENT [id number] BETSY GAY 11/15 Released w/o Limitations [facility] [place]Ch[place] opract[place] Clinic) [facility] [place] OUTPATIENT [id number] BETSY GAY W 11/17 Released w/o Limitations [facility] DEANDRE Paula(Chir opracti c Clinic) [facility] DEANDRE Paula(Chirop ractic Clinic) OUTPATIENT [id number] BETSY GAY W 11/22 Released w/o Limitations [facility] [place]ract[place] Clinic) [facility] [place] Primary Care) OUTPATIENT [id number] Notes Entered by: DAVID BETANCUR 24 Nov 2013 0840 ------- ------- ------- ------- -- JEFFERSON GARCIA JACKSON CHERY 11/24 Released w/o Limitations [facility] DEANDRE Judd([facility] Primary Care) [facility] MEDDEANDRE Guido(Chirop ractic Clinic) OUTPATIENT [id number] BETSY GAY Jennifer 11/24 Released w/o Limitations [facility] DEANDRE Judd([facility] opracti c Clinic) [facility] DEANDRE Judd(Chirop ractic Clinic) OUTPATIENT [id number] BETSY GAY Jennifer 11/29 Released w/o Limitations [facility] MEDDEANDRE Guido([facility] opracti c Clinic) [facility] DEANDRE Judd(Chirop ractic Clinic) OUTPATIENT [id number] BETSY GAY Jennifer 12/02 Released w/o Limitations [facility] DEANDRE Judd([facility] opracti c Clinic) [facility] DEANDRE Judd([facility] Dr) TELE CONSULT [id number] Notes Entered by: YARELIS ROLLE 02 Dec 2013 1139 ------- ------- ------- ------- -- Needs [facility] YARELIS ROLLE 12/02 [facility] DEANDRE Judd([facility] Dr) [facility] DEANDRE Judd([facility] Physical Therapy Clinic) OUTPATIENT [id number] BACK STRAIN LUMBAR RILEY ESCOBAR P 12/15 Released w/o Limitations [facility] DEANDRE Judd([facility] Physica l Therapy Clinic) [facility] [id number] BETSY GAY Jennifer 12/15 Released w/o Limitations [facility] MEDDEANDRE Guido([facility] opracti c Clinic) [facility] DEANDRE Judd([facility] Physical Therapy Clinic) OUTPATIENT [id number] RILEY ESCOBAR 12/17 Released w/o Limitations [facility] DEANDRE Judd([facility] Physica l Therapy Clinic) [facility] DEANDRE Judd([facility] Physical Therapy Clinic) OUTPATIENT [id number] RILEY ESCOBAR P 12/22 Released w/o Limitations [facility] [place]j [place] Physica l Therapy Clinic) [facility] [facility] DEANDRE Paula(Chirop ractic Clinic) OUTPATIENT [id number] BETSY GAY 12/23 Released w/o Limitations [facility] [place] opracti c Clinic) [facility] [place] Physical Therapy Clinic) OUTPATIENT [id number] RILEY ESCOBAR 12/28 Released w/o Limitations [facility] [place] Physica l Therapy Clinic) [facility] [place]) OUTPATIENT [id number] BETSY GAY 12/28 Released w/o Limitations [facility] [place] op[place] Clinic) [facility] [place] OUTPATIENT [id number] REKHA Fabian 12/30 Released w/o Limitations [facility] DEANDRE Paula([facility] met[facility]) [facility] [place] Physical Therapy Clinic) OUTPATIENT [id number] RILEY ESCOBAR 12/30 Released w/o Limitations [facility] [place] Physica l Therapy Clinic) [facility] [place] OUTPATIENT [id number] Notes Entered by: GILBERT PEDERSEN 11 Jan 2014 0704 ------- ------- ------- ------- -- Rx check REKHA POST 01/11 Released w/o Limitations [facility] [place]) [facility] DEANDRE Paula(Chirop ractic Clinic) OUTPATIENT [id number] BETSY GAY 01/11 Released w/o Limitations [facility] [place] opracti c Clinic) [facility] [place] Physical Therapy Clinic) OUTPATIENT [id number] RILEY ESCOBAR 01/13 Released w/o Limitations [facility] [place] Physica l Therapy Clinic) [facility] [place]) OUTPATIENT [id number] BETSY GAY Jennifer 01/13 Released w/o Limitations [facility] [place] [facility] [place]) OUTPATIENT [id number] BETSY GAY W 01/17 Released w/o Limitations [facility] [place] [facility] [place] OUTPATIENT [id number] Notes Entered by: TIMMY MURPHY 20 Jan 2014704 ------- ------- ------- ------- -- F/u conj. giant papilla ry last seen Dec 31 REKHA POST 01/20 Released w/o Limitations [facility] [place] [facility] [place]) OUTPATIENT [id number] BETSY GAY Jennifer 01/20 Released w/o Limitations [facility] [place] [place] Clinic[place] [facility] [place] Physical Therapy Clinic) OUTPATIENT [id number] RILEY ESCOBAR 01/20 Released w/o Limitations [facility] [place] Physica l Therapy Clinic) [facility] [place]) OUTPAT[place] [id number] GAY BETSY Jennifer 01/27 Released w/o Limitations [facility] [place] [place] Clinic) [facility] [place] Physical Therapy Clinic) OUTPATIENT [id number] RILEY ESCOBAR P 02/03 Released w/o Limitations [facility] [place] Physica l Therapy Clinic) [facility] [place] OUTPATIENT [id number] Notes Entered by: GILBERT PEDERSEN 08 Feb 2014704 ------- ------- ------- ------- -- contact s REKHA POST 02/08 Released w/o Limitations [facility] [place] [place] [facility] [place] Physical Therapy Clinic) OUTPATIENT [id number] RILEY ESCOBAR 02/17 Released w/o Limitations [facility] [place] Physica l Therapy Clinic) [facility] [place] [address]) TELE CONSULT [id number] Notes Entered by: YARELIS ROLLE 05 May 2014 1606 ------- ------- ------- ------- -- needs labs and YARELIS Carey 05/05 [facility] [place] [address]) [facility] [place] OUTPATIENT [id number] Notes Entered by: YO DONAHUE 11 May 2014 0725 ------- ------- ------- ------- -- f/u eye infecti on restart ed after healing from last session REKHA POST 05/11 Released w/o Limitations [facility] [place] [facility] [place] [place]) OUTPATIENT [id number] Notes Entered by: TIMMY MURPHY 18 May 2014 0702 ------- ------- ------- ------- -- f/u OU doing same REKHA POST 05/18 Released w/o Limitations [facility] [place] [facility] [place] [address] TELE CONSULT [id number] Notes Entered by: YARELIS ROLLE 19 May 2014 1205 ------- ------- ------- ------- -- needs YARELIS CareyUS 05/19 [facility] [place] [address]) [place]([facility]) OUTPATIENT [id number] BENJI Akers 06/14 Released w/o Limitations [facility], [place]([facility] 01C[facility] ) [place] OUTPATIENT [id number] Notes Entered by: AQUILINO GASTELUM 13 Jan 2015 0857 ------- ------- ------- ------- -- [facility] UPDATE RANJITH GASTELUM 01/13 Released w/o Limitations [place] OUTPATIENT [id number] Notes Entered by: Jono MARCOS 20 Jan 2015 1103 ------- ------- ------- ------- -- [facility] SELINA MARCOS 01/20 Released w/o Limitations [place] [facility] [place] ) [facility] [employer] [place]([facility] S[facility]) OUTPATIENT [id number] bumps on face SANDRA TAIWilliam Nelson 08/16 Released w/o Limitations [facility] [employer]) [facility] [employer], [place] S[facility]) OUTPATIENT [id number] ocular ulcer f/u SANDRA TAIWilliam Nelson 10/05 Released w/o Limitations [facility] [employer] S[facility]) [facility] [employer] [place] Optometry ) OUTPATIENT [id number] sick call HARI MEEK 10/05 Released w/o Limitations [facility] [employer] Optomet ry) [facility] [employer] S[facility]) TELE CONSULT [id number] Notes Entered by: GIAN HIGGINBOTHAM 05 Oct 2015 1259 ------- ------- ------- ------- -- xray results GIAN FLORES 10/05 [facility] [employer] S[facility]) [facility] [employer] Optometry ) OUTPATIENT [id number] f/u scarlett od/gpc MAHENDRA Rodriguez 10/17 Released w/o Limitations [facility] [employer] Optomet ry) [facility] [employer] Physical Therapy) OUTPATIENT [id number] Notes Entered by: Selene SMART 25 Oct 2015 1200 ------- ------- ------- ------- -- SPEC- L SARA Deng 10/25 Released w/o Limitations [facility] [employer] Physica l Therapy ) [facility], [employer] S[facility]) TELE CONSULT [id number] Notes Entered by: LIDIA ANTONIO 31 Oct 2015 1422 ------- ------- ------- ------- -- Medicat ion refill. MARGARETTE FRANKS 10/31 [facility] [employer] S[facility]) [facility] [employer] Optometry ) OUTPATIENT [id number] gpc HARI MEEK 11/02 Released w/o Limitations [facility] [employer] Optomet ry) [facility] [employer] OUTPATIENT [id number] phase 1 ETS JAE JAIN Jennifer Released w/o Limitations [facility] [employer] [place] [facility] [employer] [place] TELE CONSULT [id number] Notes Entered by: ARIEL TALAVERA 21 Dec 2015 1056 ------- ------- ------- ------- -- Called to Ijeoma ferrell appt. JAE JAIN Jennifer 12/20 Other Not Elsewhere Classified [facility] [employer] [place] [facility] [employer] Optometry ) OUTPATIENT [id number] HARI Fuentes 12/31 Released w/o Limitations [facility] [employer] Optomet ry) [facility] [employer] [place] OUTPATIENT [id number] phase 2 ets GIAN FLORES Leslie 01/02 Released w/o Limitations [facility] [employer] [facility] Outpatient Encounter [id number] 09/16 DEVONTE EVANS [facility] Procedures Combined list of: 1) Procedures from Department of Veterans Affairs facilities going back up to thelast 18 months, not all [place] non-surgical procedures are included; 2) All procedures from the Department of Defense facilities. Procedure Procedure Type Code Date Perfomer Comments Sourc e No data available for this section Amb[facility] ry Pharmacy Influenza Split Virus Vaccine 0.5mL Dosage Intramuscular 2009 MOUNIKA BREAUX Immunization Administration By Injection, One Vaccine Immunization Administration By Injection, One Vaccine 54036 2009 MOUNIKA BREAUX Hepatitis A And Hepatitis B (Intramuscular Use) Adult Dosage Hepatitis A And Hepatitis B (Intramuscular Use) Adult Dosage 31654 2009 KELBY CHILDERS Given IM in left deltoid, pt. waited x 15 mins. w/o s/s of adverse reaction noted. [facility] Immunization Administration By Injection, One Vaccine Immunization Administration By Injection, One Vaccine 54414 2009 KELBY CHILDERS [facility] Fitting Monofocal Except For Aphakia [facility] Fitting Monofocal Except For Aphakia 78394 2009 LUCIA RASHEED Ophthalmological New Patient Start Comprehensive Care Ophthalmological New Patient Start Comprehensive Care 98502 2009 LUCIA RASHEED Determination Of Refractive State Determination Of Refractive State 11447 2009 LUCIA RASHEED Injection, penicillin G benzathine, up to 1,200,000 units 2009 KEATON ALCALA Hepatitis A And Hepatitis B (Intramuscular Use) Adult Dosage Hepatitis A And Hepatitis B (Intramuscular Use) Adult Dosage 03279 2009 KEATON ALCALA Vaccines Viral Measles, Mumps and Rubella, Live Vaccines Viral Measles, Mumps and Rubella, Live 75231 2009 KEATON ALCALA Influenza Virus Vaccine Pandemic Formulation H1N1 Administration Influenza Virus Vaccine Pandemic Formulation H1N1 Administration 92183 2009 KEATON ALCALA Meningococcal Polysaccharide Diphtheria Toxoid Conjugate Vaccine 2009 KEATON ALCALA Vaccines Viral Polio, Inactivated Vaccines Viral Polio, Inactivated 15896 2009 KEATON ALCALA Influenza Virus Vaccine Pandemic Formulation Influenza Virus Vaccine Pandemic Formulation 05992 2009 KEATON ALCALA Immunization Admin By Intranasal / Oral Route One Vaccine Immunization Admin By Intranasal / Oral Route One Vaccine 17095 2009 KEATON ALCALA Physician Supervised Injection Intramuscular Antibiotic Physician Supervised Injection Intramuscular Antibiotic 32065 2009 KEATON ALCALA Venipuncture Venipuncture 50086 2009 KEATON ALCALA Tdap Vaccine Tdap Vaccine 59182 2009 KEATON ALCALA Influenza Virus Vaccine Intranasal Live Attenuated 2009 KEATON ALCALA Immunization Administration By Injection, Each Additional Vaccine 2009 KEATON ALCALA Skin Test Anergy Tuberculin Intradermal Skin Test Anergy Tuberculin Intradermal 33259 2009 KEATON ALCALA Audiometry Group Testing Audiometry Group Testing 96960 2009 THANH LEBLANC Prescription And Fitting Bilateral Corneal Lenses (Not For Aphakia) Prescription And Fitting Bilateral Corneal Lenses (Not For Aphakia) 44820 2015 HARI MEEK [employer] [facility] Fitting Monofocal Except For Aphakia [facility] [facility] Fitting Monofocal Except For Aphakia 58985 2015 HARI MEEK Determination Of Refractive State Determination Of Refractive State 14737 2015 HARI MEEK Ophthalmological Prior Patient Start Comprehensive Care Ophthalmological Prior Patient Start Comprehensive Care 86609 2015 HARI MEEK Ophthalmological Prior Patient Start Intermediate Level Care Ophthalmological Prior Patient Start Intermediate Level Care [id number] HARI MEEK Physical Therapy: ___ Se ion Segments, 15 Minutes Each Physical Therapy: ___ Session Segments, 15 Minutes Each 03038 2015 DEIDRE SMART Physical Therapy Service Evaluation Physical Therapy Service Evaluation 03065 2015 DEIDRE SMART Ophthalmological Prior Patient Start Intermediate Level Care Ophthalmological Prior Patient Start Intermediate Level Care 45864 2014 MAHENDRA RANDOLPH Ophthalmological New Patient Start Comprehensive Care Ophthalmological New Patient Start Comprehensive Care 90929 2014 HARI MEEK Threshold Audiogram (Pure Tone) Automated Threshold Audiogram (Pure Tone) Automated 0208T 2014 SELINA MARCOS Screening Test Of Visual Acuity, Quantitative, Bilateral Screening Test Of Visual Acuity, Quantitative, Bilateral 05267 2014 RANJITH GASTELUM [facility] UPDATE DISTANCE VA'S WITH CORRECTION 20/20 NEAR VA'S WITHOUT CORRECTION 20/20 OD: 20/400 OS: 20/400 Jerome Ophthalmological Prior Patient Start Intermediate Level Care Ophthalmological Prior Patient Start Intermediate Level Care 93894 2013 REKHA POST Prescription And Fitting Bilateral Corneal Lenses (Not For Aphakia) Prescription And Fitting Bilateral Corneal Lenses (Not For Aphakia) 93726 2013 REKHA POST Ophthalmological Prior Patient Start Intermediate Level Care Ophthalmological Prior Patient Start Intermediate Level Care 64707 2013 REKHA POST Physical Medicine - Group Physical Therapy Se ion Physical Medicine - Group Physical Therapy Session 58704 2013 RILEY ESCOBAR Ophthalmological Prior Patient Start Intermediate Level Care Ophthalmological Prior Patient Start Intermediate Level Care 97250 2013 POST REKHA Jerome Prescription And Fitting Bilateral Corneal Lenses (Not For Aphakia) Prescription And Fitting Bilateral Corneal Lenses (Not For Aphakia) 25184 2013 JACQUELINE POSTORY [place] Physical Medicine - Group Physical Therapy Se ion Physical Medicine - Group Physical Therapy Session 86426 2013 RILEY ESCOBAR Physical Therapy: ___ Se ion Segments, 15 Minutes Each Physical Therapy: ___ Session Segments, 15 Minutes Each 28678 2013 RILEY ESCOBAR Physical Therapy Service Re-Evaluation Physical Therapy Service Re-Evaluation 39413 2013 RILEY ESCOBAR Modalities Electrical Stimulation Attended Each 15 Minutes Modalities Electrical Stimulation Attended Each 15 Minutes 63585 2013 BETSY GAY Chiropractic Manip Treatmt (CMT) Spinal One To Two Regions Chiropractic Manip Treatmt (CMT) Spinal One To Two Regions 68266 2013 BETSY GAY Modalities Heat Hot Packs Modalities Heat Hot Packs 70308 2013 BETSY GAY Ophthalmological Prior Patient Start Intermediate Level Care Ophthalmological Prior Patient Start Intermediate Level Care 53591 2013 REKHA POST Chiropractic Manip Treatmt (CMT) Spinal One To Two Regions Chiropractic Manip Treatmt (CMT) Spinal One To Two Regions 64359 2013 BETSY GAY Modalities Heat Hot Packs Modalities Heat Hot Packs 41002 2013 BETSY GAY Modalities Electrical Stimulation Attended Each 15 Minutes Modalities Electrical Stimulation Attended Each 15 Minutes 55549 2013 BETSY GAY Modalities Electrical Stimulation Attended Each 15 Minutes Modalities Electrical Stimulation Attended Each 15 Minutes 38037 2013 BETSY GAY Chiropractic Manip Treatmt (CMT) Spinal One To Two Regions Chiropractic Manip Treatmt (CMT) Spinal One To Two Regions 32348 2013 BETSY GAY Modalities Heat Hot Packs Modalities Heat Hot Packs 01121 2013 BETSY GAY Physical Therapy: ___ Se ion Segments, 15 Minutes Each Physical Therapy: ___ Session Segments, 15 Minutes Each 94568 2013 RILEY ESCOBAR Physical Therapy Service Re-Evaluation Physical Therapy Service Re-Evaluation 24243 2013 RILEY ESCOBAR Ophthalmological Prior Patient Start Intermediate Level Care Ophthalmological Prior Patient Start Intermediate Level Care 08673 2013 REKHA POST Modalities Heat Hot Packs Modalities Heat Hot Packs 52900 2013 JAYDEN RUBIN Modalities Electrical Stimulation Unattended Modalities Electrical Stimulation Unattended 20555 2013 JAYDEN RUBIN Chiropractic Manip Treatmt (CMT) Spinal One To Two Regions Chiropractic Manip Treatmt (CMT) Spinal One To Two Regions 07059 2013 JAYDEN RUBIN Prescription And Fitting Bilateral Corneal Lenses (Not For Aphakia) Prescription And Fitting Bilateral Corneal Lenses (Not For Aphakia) 27437 2013 REKHA POST [facility] [facility] Fitting Monofocal Except For Aphakia [facility]acles Services Fitting Monofocal Except For Aphakia 73355 2013 REKHA POST Determination Of Refractive State Determination Of Refractive State 53410 2013 REKHA POST Ophthalmological New Patient Start Comprehensive Care Ophthalmological New Patient Start Comprehensive Care 16685 2013 REKHA POST Physical Therapy: ___ Se ion Segments, 15 Minutes Each Physical Therapy: ___ Session Segments, 15 Minutes Each 91021 2013 RILEY ESCOBAR Physical Therapy Service Re-Evaluation Physical Therapy Service Re-Evaluation 94708 2013 RIELY ESCOBAR Modalities Electrical Stimulation Unattended Modalities Electrical Stimulation Unattended 91800 2013 JAYDEN RUBIN Chiropractic Manip Treatmt (CMT) Spinal One To Two Regions Chiropractic Manip Treatmt (CMT) Spinal One To Two Regions 97728 2013 JAYDEN RUBIN Modalities Heat Hot Packs Modalities Heat Hot Packs 10416 2013 JAYDEN RUBIN Physical Therapy: ___ Se ion Segments, 15 Minutes Each Physical Therapy: ___ Session Segments, 15 Minutes Each 90920 2013 RILEY ESCOBAR Physical Therapy Service Re-Evaluation Physical Therapy Service Re-Evaluation 72733 2013 RILEY ESCOBAR Modalities Heat Hot Packs Modalities Heat Hot Packs 93826 2013 BETSY GAY Modalities Electrical Stimulation Unattended Modalities Electrical Stimulation Unattended 50855 2013 BETSY GAY Chiropractic Manip Treatmt (CMT) Spinal One To Two Regions Chiropractic Manip Treatmt (CMT) Spinal One To Two Regions 43965 2013 BETSY GAY Physical Therapy: ___ Se ion Segments, 15 Minutes Each Physical Therapy: ___ Session Segments, 15 Minutes Each 64114 2013 RILEY ESCOBAR Physical Therapy Service Re-Evaluation Physical Therapy Service Re-Evaluation 83756 2013 RILEY ESCOBAR Physical Therapy: ___ Se ion Segments, 15 Minutes Each Physical Therapy: ___ Session Segments, 15 Minutes Each 88909 2013 RILEY ESCOBAR Physical Therapy Service Re-Evaluation Physical Therapy Service Re-Evaluation 61076 2013 RILEY ESCOBAR Physical Therapy Service Evaluation Physical Therapy Service Evaluation 02226 2013 RILEY ESCOBAR low back, hip Jerome Physical Therapy: ___ Se ion Segments, 15 Minutes Each Physical Therapy: ___ Session Segments, 15 Minutes Each 48189 2013 RILEY ESCOBAR Modalities Electrical Stimulation Attended Each 15 Minutes Modalities Electrical Stimulation Attended Each 15 Minutes 62365 2013 BETSY GAY Modalities Heat Hot Packs Modalities Heat Hot Packs 28194 2013 BETSY GAY Chiropractic Manip Treatmt (CMT) Spinal One To Two Regions Chiropractic Manip Treatmt (CMT) Spinal One To Two Regions 18116 2013 BETSY GAY Modalities Electrical Stimulation Unattended Modalities Electrical Stimulation Unattended 46154 2013 BETSY GAY Chiropractic Manip Treatmt (CMT) Spinal One To Two Regions Chiropractic Manip Treatmt (CMT) Spinal One To Two Regions 21794 2013 BETSY GAY Modalities Heat Hot Packs Modalities Heat Hot Packs 75040 2013 BETSY GAY Modalities Electrical Stimulation Attended Each 15 Minutes Modalities Electrical Stimulation Attended Each 15 Minutes 45224 2013 BETSY GAY Modalities Heat Hot Packs Modalities Heat Hot Packs 30036 2013 BETSY AGY Chiropractic Manip Treatmt (CMT) Spinal One To Two Regions Chiropractic Manip Treatmt (CMT) Spinal One To Two Regions 37261 2013 BETSY GAY Modalities Electrical Stimulation Unattended Modalities Electrical Stimulation Unattended 66495 2013 BETSY GAY Modalities Heat Hot Packs Modalities Heat Hot Packs 71707 2013 BETSY GAY Chiropractic Manip Treatmt (CMT) Spinal One To Two Regions Chiropractic Manip Treatmt (CMT) Spinal One To Two Regions 73896 2013 BETSY GAY Chiropractic Manip Treatmt (CMT) Spinal One To Two Regions Chiropractic Manip Treatmt (CMT) Spinal One To Two Regions 38258 2013 JAYDEN RUBIN Modalities Heat Hot Packs Modalities Heat Hot Packs 22931 2013 JAYDEN RUBIN Modalities Electrical Stimulation Attended Each 15 Minutes Modalities Electrical Stimulation Attended Each 15 Minutes 71283 2013 JAYDEN RUBIN Modalities Electrical Stimulation Attended Each 15 Minutes Modalities Electrical Stimulation Attended Each 15 Minutes 34493 2013 BETSY GAY Modalities Heat Hot Packs Modalities Heat Hot Packs 38127 2013 BETSY GAY Chiropractic Manip Treatmt (CMT) Spinal One To Two Regions Chiropractic Manip Treatmt (CMT) Spinal One To Two Regions 02968 2013 BETSY GAY Threshold Audiogram (Pure Tone) Threshold Audiogram (Pure Tone) 92663 2012 VIK ACOSTA [facility] Testing Audiometry Group Testing 29322 2012 VIK ACOSTA Skin Test Anergy Tuberculin Intradermal Skin Test Anergy Tuberculin Intradermal 02423 2012 JENSEN BLACKBURN Venipuncture Venipuncture 04746 2012 JENSEN BLACKBURN [facility] Influenza Virus Vaccine Live Attenuated Intranasal Trivalent Influenza Virus Vaccine Live Attenuated Intranasal Trivalent 71752 2012 JENSEN BLACKBURN Imms given by: Glenis Conrad Pendroy asked to verify full name and . Pendroy denies any cultural limitations to receiving vaccination/in jection. Educational information provided by way of Vaccine Information sheets by the CDC. Allergies verified and patient/parent educated on potential side effects, reactions, and medication contraindicati ons. Pendroy has no questions at this time. Pendroy agrees to wait in clinic for 20 min following vaccination/in jection to monitor for side effect and/or reactions. Vaccines/Immun izations recorded in [facility] Immunizations Module and MEDPROS, includes details of vaccines given, location, dosage, and adverse events. The drug reactions/side effects are being monitored: Details -- Patient tolerated vaccinations without significant side effects, discharged 20 minutes after administered and no adverse reactions noted. DoD Immunization Admin By Intranasal / Oral Route One Vaccine Immunization Admin By Intranasal / Oral Route One Vaccine 25760 2012 JENSEN BLACKBURN [facility] Venipuncture Venipuncture 43681 2011 TRISH GUERRERO DoD Immunization Administration By Injection, One Vaccine Immunization Administration By Injection, One Vaccine 86690 2011 TRISH GUERRERO DoD Vaccines Vaccines 06501 2011 TRISH GUERRERO Influenza; Series #: 1; .5 mL; IM; [place]; [facility] [place] [employer], Cover [employer].; Lot: [id number]; VIS given (Vera: 05/30/09). [facility] Screening Test Of Visual Acuity, Quantitative, Bilateral Screening Test Of Visual Acuity, Quantitative, Bilateral 63837 2011 CARLOS MURPHY [facility] Audiometry Group Testing Audiometry Group Testing 51342 2011 HAKEEM WALTERS [facility] [facility] Ear Protector Attenuation Measurements Ear Protector Attenuation Measurements 26943 2011 HAKEEM WALTERS [facility] Venipuncture Venipuncture [id number] 2010 DENG SUMMERS [facility] Vaccines Viral Measles, Mumps and Rubella, Live Vaccines Viral Measles, Mumps and Rubella, Live [id number] 2010 DEJA CHRISTIANO Beverley [facility] Immunization Administration By Injection, Each Additional Vaccine 2010 DEJA CHRISTIANO Beverley [facility] Hepatitis A And Hepatitis B (Intramuscular Use) Adult Dosage Hepatitis A And Hepatitis B (Intramuscular Use) Adult Dosage 30371 2010 CHRISTIANO SHORT Beverley [facility] Immunization Administration By Injection, One Vaccine Immunization Administration By Injection, One Vaccine 34635 2010 DEJA CHRISTIANO Beverley [facility] Spectacles Services Fitting Monofocal Except For Aphakia Spectacles Services Fitting Monofocal Except For Aphakia [id number] 2010 BRIANWALTER DARNELL Karlie [facility] Visual Function Screening Visual Function Screening 78199 2009 MOUNIKA BREAUX [facility] Threshold Audiogram (Pure Tone) Threshold Audiogram (Pure Tone) 90265 2009 MOUNIKA BREAUX [facility] Extensive Color Vision Testing Extensive Color Vision Testing 53368 2009 MOUNIKA BREAUX [facility] PURE TONE AUDIOMETRY (THRESHOLD), AUTOMATED; AIR ONLY 2014 [facility] SCREENING TEST OF VISUAL ACUITY, QUANTITATIVE, BILATERAL 2014 [facility] PRESCRIPTION OF OPTICAL AND PHYSICAL CHARACTERISTICS OF AND FITTING OF CONTACT LENS, WITH MEDICAL SUPERVISION OF ADAPTATION; CORNEAL LENS, BOTH EYES, EXCEPT FOR APHAKIA 2015 [facility] OPHTHALMOLOGICAL SERVICES: MEDICAL EXAMINATION AND EVALUATION, WITH INITIATION OR CONTINUATION OF DIAGNOSTIC AND TREATMENT PROGRAM; INTERMEDIATE, ESTABLISHED PATIENT 2015 [facility] THERAPEUTIC PROCEDURE, 1 OR MORE AREAS, EACH 15 MINUTES; THERAPEUTIC EXERCISES TO DEVELOP STRENGTH AND ENDURANCE, RANGE OF MOTION AND FLEXIBILITY 2015 [facility] OPHTHALMOLOGICAL SERVICES: MEDICAL EXAMINATION AND EVALUATION, WITH INITIATION OR CONTINUATION OF DIAGNOSTIC AND TREATMENT PROGRAM; INTERMEDIATE, ESTABLISHED PATIENT 2014 [facility] OPHTHALMOLOGICAL SERVICES: MEDICAL EXAMINATION AND EVALUATION WITH INITIATION OF DIAGNOSTIC AND TREATMENT PROGRAM; COMPREHENSIVE, NEW PATIENT, 1 OR MORE VISITS 2014 [facility] MEASLES, MUMPS AND RUBELLA VIRUS VACCINE (MMR), LIVE, FOR SUBCUTANEOUS USE 2010 [facility] FITTING OF SPECTACLES, EXCEPT FOR APHAKIA; MONOFOCAL 2010 [facility] VIS FUNCT SCREEN,AUTOMAT/MONA I-AUTOMAT BILAT QUANT DETERM VISUAL ACUITY,OCULAR ALIGN,COLOR VISION,PSEUDOISOCH ROMAT PLATES,& FIELD VIS (MAY INC ALL/SOME SCRN DETERM FOR CONTRAST SENSITIV,VIS UND GLARE) 2009 [facility] INFLUENZA VIRUS VACCINE, TRIVALENT (IIV3), SPLIT VIRUS, 0.5 ML DOSAGE, FOR INTRAMUSCULAR USE 2009 [facility] IMMUNIZATION ADMINISTRATION (INCLUDES PERCUTANEOUS, INTRADERMAL, SUBCUTANEOUS, OR INTRAMUSCULAR INJECTIONS); 1 VACCINE (SINGLE OR COMBINATION VACCINE/TOXOID) 2009 [facility] SKIN TEST; TUBERCULOSIS, INTRADERMAL 2009 [facility] AUDIOMETRIC TESTING OF GROUPS 2009 [facility] FITTING OF SPECTACLES, EXCEPT FOR APHAKIA; MONOFOCAL 2009 [facility] PRESCRIPTION OF OPTICAL AND PHYSICAL CHARACTERISTICS OF AND FITTING OF CONTACT LENS, WITH MEDICAL SUPERVISION OF ADAPTATION; CORNEAL LENS, BOTH EYES, EXCEPT FOR APHAKIA 2013 [facility] OPHTHALMOLOGICAL SERVICES: MEDICAL EXAMINATION AND EVALUATION, WITH INITIATION OR CONTINUATION OF DIAGNOSTIC AND TREATMENT PROGRAM; INTERMEDIATE, ESTABLISHED PATIENT 2013 [facility] THERAPEUTIC PROCEDURE(S), GROUP (2 OR MORE INDIVIDUALS) 2013 [facility] OPHTHALMOLOGICAL SERVICES: MEDICAL EXAMINATION AND EVALUATION, WITH INITIATION OR CONTINUATION OF DIAGNOSTIC AND TREATMENT PROGRAM; INTERMEDIATE, ESTABLISHED PATIENT 2013 [facility] THERAPEUTIC PROCEDURE(S), GROUP (2 OR MORE INDIVIDUALS) 2013 [facility] PHYSICAL THERAPY RE-EVALUATION 2013 [facility] APPLICATION OF A MODALITY TO 1 OR MORE AREAS; ELECTRICAL STIMULATION (MANUAL), EACH 15 MINUTES 2013 [facility] OPHTHALMOLOGICAL SERVICES: MEDICAL EXAMINATION AND EVALUATION, WITH INITIATION OR CONTINUATION OF DIAGNOSTIC AND TREATMENT PROGRAM; INTERMEDIATE, ESTABLISHED PATIENT 2013 [facility] APPLICATION OF A MODALITY TO 1 OR MORE AREAS; HOT OR COLD PACKS 2013 [facility] APPLICATION OF A MODALITY TO 1 OR MORE AREAS; ELECTRICAL STIMULATION (MANUAL), EACH 15 MINUTES 2013 [facility] PHYSICAL THERAPY RE-EVALUATION 2013 [facility] APPLICATION OF A MODALITY TO 1 OR MORE AREAS; HOT OR COLD PACKS 2013 [facility] OPHTHALMOLOGICAL SERVICES: MEDICAL EXAMINATION AND EVALUATION, WITH INITIATION OR CONTINUATION OF DIAGNOSTIC AND TREATMENT PROGRAM; INTERMEDIATE, ESTABLISHED PATIENT 2013 [facility] THERAPEUTIC PROCEDURE, 1 OR MORE AREAS, EACH 15 MINUTES; THERAPEUTIC EXERCISES TO DEVELOP STRENGTH AND ENDURANCE, RANGE OF MOTION AND FLEXIBILITY 2013 [facility] OPHTHALMOLOGICAL SERVICES: MEDICAL EXAMINATION AND EVALUATION WITH INITIATION OF DIAGNOSTIC AND TREATMENT PROGRAM; COMPREHENSIVE, NEW PATIENT, 1 OR MORE VISITS 2013 [facility] APPLICATION OF A MODALITY TO 1 OR MORE AREAS; HOT OR COLD PACKS 2013 [facility] THERAPEUTIC PROCEDURE, 1 OR MORE AREAS, EACH 15 MINUTES; THERAPEUTIC EXERCISES TO DEVELOP STRENGTH AND ENDURANCE, RANGE OF MOTION AND FLEXIBILITY 2013 [facility] APPLICATION OF A MODALITY TO 1 OR MORE AREAS; ELECTRICAL STIMULATION (UNATTENDED) 2013 [facility] THERAPEUTIC PROCEDURE, 1 OR MORE AREAS, EACH 15 MINUTES; THERAPEUTIC EXERCISES TO DEVELOP STRENGTH AND ENDURANCE, RANGE OF MOTION AND FLEXIBILITY 2013 [facility] THERAPEUTIC PROCEDURE, 1 OR MORE AREAS, EACH 15 MINUTES; THERAPEUTIC EXERCISES TO DEVELOP STRENGTH AND ENDURANCE, RANGE OF MOTION AND FLEXIBILITY 2013 [facility] THERAPEUTIC PROCEDURE, 1 OR MORE AREAS, EACH 15 MINUTES; THERAPEUTIC EXERCISES TO DEVELOP STRENGTH AND ENDURANCE, RANGE OF MOTION AND FLEXIBILITY 2013 [facility] APPLICATION OF A MODALITY TO 1 OR MORE AREAS; HOT OR COLD PACKS 2013 [facility] APPLICATION OF A MODALITY TO 1 OR MORE AREAS; ELECTRICAL STIMULATION (UNATTENDED) 2013 [facility] APPLICATION OF A MODALITY TO 1 OR MORE AREAS; ELECTRICAL STIMULATION (MANUAL), EACH 15 MINUTES 2013 [facility] APPLICATION OF A MODALITY TO 1 OR MORE AREAS; ELECTRICAL STIMULATION (UNATTENDED) 2013 [facility] CHIROPRACTIC MANIPULATIVE TREATMENT (CMT); SPINAL, 1-2 REGIONS 2013 [facility] APPLICATION OF A MODALITY TO 1 OR MORE AREAS; ELECTRICAL STIMULATION (MANUAL), EACH 15 MINUTES 2013 [facility] PURE TONE AUDIOMETRY (THRESHOLD); AIR ONLY 2012 [facility] IMMUNIZATION ADMINISTRATION BY INTRANASAL OR ORAL ROUTE; 1 VACCINE (SINGLE OR COMBINATION VACCINE/TOXOID) 2012 [facility] SKIN TEST; TUBERCULOSIS, INTRADERMAL 2011 [facility] COLLECTION OF VENOUS BLOOD BY VENIPUNCTURE 2011 [facility] SCREENING TEST OF VISUAL ACUITY, QUANTITATIVE, BILATERAL 2011 [facility] AUDIOMETRIC TESTING OF GROUPS 2011 [facility] COLLECTION OF VENOUS BLOOD BY VENIPUNCTURE 2010 [facility] Social History Combined list of available smoking, tobacco, and other social history from Department of Defense and Veterans Affairs facilities. Social History Type Response Date Comment Sourc e Tobacco smoking status NHIS VA-TOBACCO FORMER USER 02/05/2022 [place] [facility] History of tobacco use VA-TOBACCO QUIT 5 TO < 15 YRS 02/05/2022 [facility] This section is an empty social history section. [facility] Assessment and Plan Combined list of future care activities from Department of Defense and Veterans Affairs facilities (e.g., assessment and plan notes, appointments, orders, and referrals). Additional future care activities may be listed in the Plan of Care section. Result Assessment and Plan Date Source Assessment and Plan No data available for this section 03/06/2024 [facility]ulatory [facility]acy Functional Status Combined list of recent functional and cognitive assessments recorded at [facility] Defense and [facility] (VA).VA Functional Slope Measurement (FIM) Scale: 1 = Total Assistance (Subject = 0% +), 2 = Maximal Assistance (Subject = 25% +), 3 = Moderate Assistance (Subject = 50% +), 4 = Minimal Assistance (Subject = 75% +), 5 = Supervision, 6 = Modified Slope (Device), 7 = Complete Slope (Timely, Safely). Assessment Date/Time Source Assessment Type Assessment Skill Assessment Score Assessment Details No data available for this section
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
[2024-03-05 19:12] LABS: Albumin* 4.7 g/dL (3.3-5.0); Chloride* 106 mmol/L (96-114); Sodium* 141 mmol/L (135-149)
[2024-03-05 19:13] LABS: Potassium* 3.6 mmol/L (3.6-5.1)
[2024-03-05 19:15] LABS: Amylase* 72 U/L (18-89); Anion Gap 8 mEq/L (7-15); Bilirubin Total* 0.4 mg/dL (0.1-1.5); Blood Urea Nitrogen* 24 mg/dL (5-24); Carbon Dioxide* 27 mmol/L (20-32); Creatinine* 0.9 mg/dL (0.5-1.5); Est. Creatinine Clearance* 112.65; Estimated Glomerular Filt Rate 111 ml/min; Total Protein* 7.5 g/dL (6.0-8.3)
[2024-03-05 19:16] LABS: Alanine Aminotransferase* 25 U/L (4-50); Alkaline Phosphatase* 80 U/L (40-150); Aspartate Amino Transferase* 32 U/L (12-35); Calcium* 8.9 mg/dL (8.4-10.6); Glucose* 137 mg/dL (60-115)
[2024-03-05 19:18] LABS: C Reactive Protein* < 0.5 mg/dL (0.5-1.0)
[2024-03-05 20:00] LABS: Appearance Urine Clear (Clear); Bilirubin Urine Negative (Negative); Blood Urine Negative (Negative); Color Urine Amber (Yellow); Glucose Urine Negative (Negative); Ketones Urine Negative (Negative); Leukocyte Esterase Urine Negative (Negative); Nitrite Urine Negative (Negative); Protein Urine Negative (Negative); Specific Gravity Urine >= 1.030 (1.000-1.030); Urobilinogen Urine 0.2 (0.2-1.0); pH Urine 5.5 (5.0-8.5)
[2024-03-05 20:12] LABS: Amphetamine Screen Urine Negative (Negative); Barbiturate Screen Urine Negative (Negative); Benzodiazepines Screen Urine Negative (Negative); Cannabinoid Screen Urine Negative (Negative); Cocaine Screen Urine Negative (Negative); Methadone Screen Urine Negative (Negative); Methamphetamines Screen Urine Negative (Negative); Opiate Screen Urine Negative (Negative); Oxycodone Screen Urine Negative (Negative); Phencyclidine Screen Urine Negative (Negative); Tricyclic Antidepressant Urine Negative (Negative)
[2024-03-05 20:15] LABS: RBC Urine 0-2 (0-2); WBC Urine 0-2 (0-5)
== END 2024-03-05 20:05 | disposition home or self-care (01) ==
PROVIDERS: Emergency Provider Family Medicine; PCP Surgery
DX: E86.0 Dehydration (principal); R11.0 Nausea; T73.3XXA Exhaustion due to excessive exertion, initial encounter
CPT/HCPCS: 36415; 74176; 80048; 80076; 80306; 81001; 82150; 84484; 85025; 86140; 87086; 93005; 94761; 96374; 96375; 99284; 99285; J2060; J2405; J7030